=== PATIENT | female | born 1975 ===

== ENCOUNTER 2019-01-08 15:22 | Emergency (ER) | payer OTHER ==
[~2019-01-08] VITALS: Ht 160 cm; Wt 70.3 kg
[2019-01-08] MEDS ORDERED: TYLECOD3 PO (16:22)
[2019-01-08] MEDS ORDERED: NYST237S MT (16:22)
[2019-01-08] MEDS ORDERED: Amoxicillin500 MG PO (16:22)
== END 2019-01-08 16:36 | disposition home or self-care (01) ==
LOC: ER 15:22
DX: K04.7 Periapical abscess without sinus (principal); F17.200 Nicotine dependence, unspecified, uncomplicated
CPT/HCPCS: 99282

== ENCOUNTER → 2022-04-30 | Outpatient (CLI) | payer OTHER ==
[~2022-04-30] MED LIST: Amoxicillin500 MG PO; NYST237S MT; TYLECOD3 PO
== END | disposition home or self-care (01) ==
LOC: LAB 12:08 → LAB SHORT 12:08
DX: D22.71 Melanocytic nevi of right lower limb, including hip (principal)
CPT/HCPCS: 88305